=== PATIENT | male | born 2005 | race Caucasian/White ===

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

== ENCOUNTER 2023-02-26 14:16 | Emergency (ER) | payer OTHER, SELFPAY ==
[2023-02-26 14:23] VITALS: BMI 36.2
--- NOTE | 2023-02-26 14:41 | XRR_ITS ---
PROCEDURE INFORMATION: Exam: XR Chest Exam date and time: 02/26/2023 2:51 PM Age: 17 years old Clinical indication: Shortness of breath; Additional info: SOB TECHNIQUE: Imaging protocol: Radiologic exam of the chest. Views: 1 view. COMPARISON: No relevant prior studies available. FINDINGS: Lungs: Unremarkable. No consolidation. Pleural spaces: Unremarkable. No pleural effusion. No pneumothorax. Heart/Mediastinum: Unremarkable. No cardiomegaly. Bones/joints: Unremarkable. XR/XR chest 1V portable [id number] IMPRESSION: No acute findings.
--- NOTE | 2023-02-26 14:51 | PC.NURSE ---
triage overseen by this RN
--- NOTE | 2023-02-26 15:09 | ED.C_ITS ---
HPI - Psych General: Chief Complaint: Psychiatric Symptoms Stated Complaint: SI; drug use Time Seen by Provider: 02/26/23 14:19 History of Present Illness: Patient comes in with request for help detoxing from fentanyl. Patient states he snorts fentanyl every 6 hours and has for a while. States he wants to get off the drugs. Denies suicidal or homicidal ideation. States he last used about 3 hours prior to arrival. Physical exam is unremarkable. He does complain of some occasional shortness of breath but thinks that might be psychological. Review of Systems Const: Denies: fever(s) or body aches Eyes: Denies: change in vision or blurry vision ENMT: Denies: throat pain or odynophagia Card: Denies: chest pain or palpitations Resp: Reports: non-productive cough; Denies: dyspnea or productive cough GI: Denies: abdominal pain, nausea or vomiting : Denies: flank pain or dysuria Musc: Denies: neck pain or back pain Skin/Breast: Denies: rash or pruritus Neuro: Denies: headache(s) or numbness in extremities Psych: Denies: anxiety or change in appetite Endo: Denies: polyuria or excessive sweating PFS ED PFSH: Medical History (Updated 02/26/23 @ 15:09 by Mateusz Ngo MD) ADHD (attention deficit hyperactivity disorder) Allergic rhinitis due to allergen Hypertension Lumbar back sprain Morbid obesity with BMI of 45.0-49.9, adult Family History Other Cancer Diabetes Social History Smoking and tobacco status: never smoked Alcohol intake: never Substance/Drug Use: current Substance/Drug use frequency: few times a week Highest education level completed: 11th Grade Physical Exam Const: COMMON NORMALS: no acute distress, patient oriented x3, healthy appearing and alert HENMT: COMMON NORMALS: normocephalic and atraumatic HEAD & SCALP: normocephalic and atraumatic Eye: COMMON NORMALS: Equal, round and reactive pupils present and EOMs intact bilaterally PUPIL: Yes Equal, round and reactive pupils present Neck/C-Spine: COMMON NORMALS: full ROM and supple Resp: COMMON NORMALS: normal respiratory effort, No retractions and No use of accessory muscles Cardio: COMMON NORMALS: regular rate and regular rhythm RATE: regular rate RHYTHM: regular rhythm GI: COMMON NORMALS: Normal to inspection, nondistended, normoactive bowel sounds present, Soft to palpation and non-tender PALPATION: Yes Soft to palpation Extremity: COMMON NORMALS: normal to inspection and full ROM Neuro: COMMON NORMALS: patient oriented x3 SENSORIUM/ORIENTATION: Yes alert Psych: COMMON NORMALS: mental status grossly normal and cooperative Skin: COMMON NORMALS: no rashes or lesions noted and no wounds GENERAL SKIN EXAM: no rashes or lesions noted MDM - Psych Medical Decision Making Patient comes in with request for help detoxing from fentanyl. Patient states he snorts fentanyl every 6 hours and has for a while. States he wants to get off the drugs. Denies suicidal or homicidal ideation. States he last used about 3 hours prior to arrival. Physical exam is unremarkable. He does complain of some occasional shortness of breath but thinks that might be psychological. Will check x-ray, and reassess. On reassessment I talked to the patient about the x-ray results. His chest x- ray is unremarkable. I talked with him about calling turning [facility] on Tuesday to see if they can get him in for rehab. We will start him on Bentyl, Zofran, and naproxen. He already takes clonidine for chronic high blood pressure. Will discharge at this time with precautions return for worsening or changing symptoms. Discharge Plan Discharge Patient Disposition: Home Clinical Impression: Fentanyl use disorder, mild, abuse Condition: Stable Prescriptions: New naproxen sodium 550 mg tablet 550 mg PO BID Qty: 10 0RF dicyclomine 10 mg capsule 10 mg PO TID PRN (Reason: vomiting) Qty: 14 0RF ondansetron 4 mg tablet,disintegrating 4 mg PO Q6H PRN (Reason: nausea and vomiting) Qty: 20 0RF No Action ibuprofen 200 mg tablet 200 mg PO Q6H PRN diphenhydramine HCl [Benadryl Allergy] 25 mg tablet 25 mg PO TID PRN clonidine HCl 0.2 mg tablet 0.2 mg PO BID 90 Days Qty: 180 0RF Discharge Orders: Discharge ED (Routine); Ordered 02/26/23 Ordered By: Mateusz Ngo Referrals: Urbano Sykes MD [Primary Care Provider] - Patient Instructions: Narcotic Withdrawal (ED) Coding Level of Care Code 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
== END 2023-02-26 15:28 | disposition home or self-care (01) ==
PROVIDERS: Emergency Provider Emergency Medicine; PCP Family Medicine Adult Medicine
DX: F11.10 Opioid abuse, uncomplicated (principal); I10 Essential (primary) hypertension
CPT/HCPCS: 71045; 99283

== ENCOUNTER 2024-12-08 14:36 | Inpatient (IN) | payer SELFPAY ==
[2024-12-08 14:38] VITALS: BP 158/79; PULSE 101; RESP 18; TEMP 36.7; O2SAT 99; BMI 29.9
--- NOTE | 2024-12-08 15:57 | CTR_ITS ---
PROCEDURE INFORMATION: Exam: CT Orbits With Contrast Exam date and time: 12/08/2024 4:06 PM Age: 19 years old Clinical indication: Sinusitis and other: RT eye swellling; Acute; Additional info: R eye preoptosis and swelling TECHNIQUE: Imaging protocol: Computed tomography of the orbits with contrast. Radiation optimization: All CT scans at this facility use at least one of these dose optimization techniques: automated exposure control; mA and/or kV adjustment per patient size (includes targeted exams where dose is matched to clinical indication); or iterative reconstruction. Contrast material: OMNIPAQUE 350; Contrast volume: 80 ml; Contrast route: INTRAVENOUS (IV); COMPARISON: No relevant prior studies available. RADIATION DOSE METRICS: Total DLP (mGy-cm): 365.78 FINDINGS: Paranasal sinuses: Frothy secretions in the right ethmoid air cells and right maxillary sinus. Mucosal disease of the right sphenoid sinus and left maxillary sinus. Orbital cavities: There is right medial and lateral extraconal fat stranding. Teeth: Periapical lucency surrounding the left maxillary 1st premolar tooth. Bones/joints: No acute fracture. Soft tissues: There is a right periorbital swelling. CT/[place] [id number] IMPRESSION: 1. Right orbital cellulitis with no abscess formation. 2. Acute sinusitis of the right maxillary sinus and right ethmoid air cells.
--- NOTE | 2024-12-08 15:58 | ED_ITS ---
HPI - Allergic Reaction 2 General: Chief complaint: Allergic Reaction Stated complaint: allergic reation Time Seen by Provider: 12/08/24 15:50 History of Present Illness: HPI narrative: 19-year-old male presents to the emergen cy room with complaints of swelling of the right eye especially the upper eyelid there is some swelling and protrusion of the eye. He has no vision changes symptoms began overnight. No fever sweats or chills about a week ago he had flulike symptoms a week ago and they resolved. No fever sweats or chills no purulent discharge Associated symptoms: Deny abdominal pain Related Data Home Medications ?Medication ?Instructions ?Recorded ?Confirmed No Known Home Medications 12/08/2406/24 Allergies Allergy/AdvReac Type Severity Reaction Status Date / Time shellfish derived Allergy Severe ALGY-Anaphy Verified 03/01/23 14:37 laxis Review of Systems 2 Const: Denies: fever(s) or chills Eyes: Reports: eye discomfort and other (Periorbital swelling of the right eye); Denies: change in vision, photophobia or eye redness Card: Denies: chest pain Resp: Denies: dyspnea GI: Denies: abdominal pain : Denies: dysuria, urinary frequency or urinary urgency Musc: Denies: neck pain or back pain Skin/Breast: Denies: rash PFSH ED 2 PFSH: Medical History Weight loss, intentional Obesity (BMI 30-39.9) Nausea & vomiting Opioid dependence with current use Lumbar back sprain ADHD (attention deficit hyperactivity disorder) Allergic rhinitis due to allergen Hypertension Has almost corrected with his weight loss of 100 pounds by 03/01/2023 Family History Other Cancer Diabetes Social History Smoking and tobacco/nicotine status: never used tobacco/nicotine Alcohol intake: never Substance/Drug Use: current Substance/Drug use frequency: few times a week Highest education level completed: 11th Grade Physical Exam 2 Const: COMMON NORMALS: no acute distress GENERAL APPEARANCE: cooperative and comfortable ORIENTATION/CONSCIOUSNESS: Yes awake, Yes oriented to person, Yes oriented to place and Yes oriented to time HENMT: COMMON NORMALS: normocephalic, atraumatic and hearing grossly normal bilaterally HEAD & SCALP: normocephalic and atraumatic Eye: OTHER: Right eye periorbital swelling particularly in the upper eyelid. No sclera or conjunctival injection. No purulent drainage or some clear tearing. Minimal tenderness with palpation over the globe of the eye. Resp: COMMON NORMALS: normal respiratory effort, No retractions, No use of accessory muscles and clear to auscultation bilaterally AUSCULTATION: clear to auscultation bilaterally Cardio: COMMON NORMALS: regular rate, regular rhythm and No murmurs present (Cardio) RATE: regular rate RHYTHM: regular rhythm Extremity: COMMON NORMALS: normal to inspection, capillary refill normal, no clubbing, cyanosis or edema, no calf tenderness and no pedal edema Neuro: SENSORIUM/ORIENTATION: Yes oriented to person, Yes oriented to place and Yes oriented to time Skin: COMMON NORMALS: no rashes or lesions noted GENERAL SKIN EXAM: no rashes or lesions noted Course 2 Vital Signs: Vital signs: Vital Signs Temperature 98.0 F 12/08/24 14:38 Pulse Rate 101 H 12/08/24 14:38 Respiratory Rate 18 12/08/24 14:38 Blood Pressure 158/79 12/08/24 14:38 Pulse Oximetry 99 12/08/24 14:38 Oxygen Delivery Me thod Room Air 12/08/24 14:38 MDM - Allergic Reaction Medical Decision Making Labs and imaging reviewed white count 14, CRP is elevated. CT shows an orbital cellulitis likely from right ethmoid sinusitis. Discussed with Dr. Renner on- call for ophthalmology he is going to consult on the patient. Will start Vanco and Zosyn cultures done admit Dr. Smith's hospitalist. Orders written. Interestingly in patient first arrived he had little to no pain at all during exam however by the time we completed the full workup, began to have significantly more discomfort requiring pain medications. Medical Records I reviewed the patient's medical records. Lab Data I reviewed the patient's lab results. 12/08/24 16:05 12/08/24 16:[address] 12/08/24 15:57 IMPRESSION: 1. Right orbital cellulitis with no abscess formation. 2. Acute sinusitis of the right maxillary sinus and right ethmoid air cells. Laboratory Results WBC 14.16 10^3/uL (3.29-11.43) H 12/08/24 16:05 RBC 4.83 10^6/uL (3.85-5.65) 12/08/24 16:05 Hgb 14.50 g/dL (11.27-16.99) 12/08/24 16:05 Hct 43.1 % (37-53) 12/08/24 16:05 MCV 89.2 fl (82-101) 12/08/24 16:05 MCH 30.0 pg (27-33) 12/08/24 16:05 MCHC 33.6 g/dL (30-55) 12/08/24 16:05 RDW 11.9 % (12.1-15.1) L 12/08/24 16:05 Plt Count 440 10^3/cmm (157-399) H 12/08/24 16:05 MPV 10.0 fL (7.4-10.4) 12/08/24 16:05 Neut % (Auto) 77.6 % 12/08/24 16:05 Lymph % (Auto) 12.5 % 12/08/24 16:05 Sibley % (Auto) 8.3 % 12/08/24 16:05 Eos % (Auto) 0.9 % 12/08/24 16:05 Baso % (Auto) 0.2 % 12/08/24 16:05 Neut # (Auto) 10.98 10^3/uL (1.8-7.7) H 12/08/24 16:05 Lymph # (Auto) 1.8 10^3/uL (0.8-4.8) 12/08/24 16:05 Sibley # (Auto) 1.2 10^3/uL (0.2-0.9) H 12/08/24 16:05 Eos # (Auto) 0.1 10^3/uL (0.0-0.8) 12/08/24 16:05 Baso # (Auto) 0.0 10^3/uL (0.0-0.1) 12/08/24 16:05 Nucleated RBC % (auto) 0 % 12/08/24 16:05 Nucleated RBCs # 0.0 /100WBC 12/08/24 16:05 Sodium 139 mmol/L (136-145) 12/08/24 16:05 Potassium 3.3 mmol/L (3.5-5.1) L 12/08/24 16:05 Chloride 96 mmol/L (98-107) L 12/08/24 16:05 Carbon Dioxide 29 mmol/L (22-29) 12/08/24 16:05 Anion Gap 17.3 (5-19) 12/08/24 16:05 BUN 10 mg/dL (6-20) 12/08/24 16:05 Creatinine 0.6 mg/dL (0.7-1.2) L 12/08/24 16:05 GFR Calculation 170.1 mL/min (90-130) H 12/08/24 16:05 Glucose 108 mg/dL (65-115) 12/08/24 16:05 Calculated Osmolality 288 mOsm/kg (285-295) 12/08/24 16:05 Calcium 9.4 mg/dL (8.5-10.5) 12/08/24 16:05 Total Bilirubin 0.5 mg/dL (0.15-1.2) 12/08/24 16:05 AST 15 U/L (0-40) 12/08/24 16:05 ALT 20 U/L (0-41) 12/08/24 16:05 Alkaline Phosphatase 78 U/L (40-130) 12/08/24 16:05 C-Reactive Protein 41.6 mg/L (0.0-4.9) H 12/08/24 16:05 Total Protein 8.4 g/dL (6.6-8.7) 12/08/24 16:05 Albumin 4.3 g/dL (3.5-5.2) 12/08/24 16:05 Globulin 4.1 g/dL (1.3-4.6) 12/08/24 16:05 All radiology interpretation(s) finalized by discharge Discharge Plan Discharge Patient Disposition: Admitted As Inpatient Admit Provider: Junior Garcia Clinical Impression: Cellulitis of right orbit Condition: Stable Prescriptions: No Action No Known Home Medications Referrals: Urbano Sykes MD [Primary Care Provider] - Print Language: Greenlandic Coding Level of Care Code ED Glue Spreader for [facility] Justino
[2024-12-08 16:16] LABS: Basophils % 0.2 %; Eosinophils # 0.1 10^3/uL (0.0-0.8); Eosinophils % 0.9 %; Hematocrit 43.1 % (37-53); Lymphocytes # 1.8 10^3/uL (0.8-4.8); Lymphocytes % 12.5 %; Mean Corpuscular HGB Conc 33.6 g/dL (30-55); Mean Corpuscular Volume 89.2 fl (82-101); Monocytes # 1.2 10^3/uL (0.2-0.9); Monocytes % 8.3 %; Neutrophils # 10.98 10^3/uL (1.8-7.7); Neutrophils % 77.6 %; Nucleated Red Blood Cells % 0 %; Platelet Count 440 10^3/cmm (157-399); Red Blood Count 4.83 10^6/uL (3.85-5.65); Red Cell Distribution Width 11.9 % (12.1-15.1); White Blood Count 14.16 10^3/uL (3.29-11.43)
[2024-12-08] MEDS: iohexol 350 mg/mL 500 mL Btl (per mL) IV (16:18)
[2024-12-08 16:32] LABS: Alanine Aminotransferase 20 U/L (0-41); Albumin Level 4.3 g/dL (3.5-5.2); Alkaline Phosphatase 78 U/L (40-130); Aspartate Amino Transferase 15 U/L (0-40); Blood Urea Nitrogen 10 mg/dL (6-20); C Reactive Protein 41.6 mg/L (0.0-4.9); Calcium 9.4 mg/dL (8.5-10.5); Carbon Dioxide 29 mmol/L (22-29); Chloride 96 mmol/L (98-107); Globulin 4.1 g/dL (1.3-4.6); Glomerular Filtration Rate 170.1 mL/min (90-130); Glucose 108 mg/dL (65-115); Osmolality Calculated 288 mOsm/kg (285-295); Sodium 139 mmol/L (136-145); Total Bilirubin 0.5 mg/dL (0.15-1.2); Total Protein 8.4 g/dL (6.6-8.7)
[2024-12-08 16:35] LABS: Anion Gap 17.3 (5-19); Potassium 3.3 mmol/L (3.5-5.1)
[2024-12-08] MEDS: piperacillin-tazobactam 3.375 GM in sodium chloride 0.9% (plus) 50 ML IV (17:56)
[2024-12-08 18:00] VITALS: BP 159/78; PULSE 74; O2SAT 94; O2SAT 95
[2024-12-08] MEDS: ondansetron 2 mg/ML SDV 2 mL 4 MG IVP (18:02)
[2024-12-08 18:03] VITALS: RESP 14; O2SAT 97
[2024-12-08] MEDS: morphine 4 mg/mL SDV 1 mL IVP (18:03)
--- NOTE | 2024-12-08 18:06 | P.HP_ITS ---
Providers/Chief Complaint 2 Admitting Physician: Junior Garcia MD Primary Care Provider: Urbano Sykes MD Chief Complaint: allergic reation History of Present Illness Dave Howard is a 19 year old male with a past medical history of obesity recently lost weight, trying to lose weight, hypertension, who presents [facility] due to swelling around right eye specifically right upper eyelid swelling right brow swelling, and right lower eyelid swelling. He tells me that he can see out of the right eye no blurry vision, no floaters, no photopsia, but does have frequent tearing out of right eye. He tells me that symptoms started about 24 hours ago, with itchiness in his right eye no visual changes, no fevers, no chills, no night sweats, no trauma to the eye, no foreign body in the eye, no animal bite or licking, he did have a flulike symptoms about a week ago Review of Systems 2 Const: Denies: fever(s), chills, fatigue or malaise Card: Denies: chest pain Resp: Denies: dyspnea GI: Denies: abdominal pain Medications/Allergies Home Medications ?Medication ?Instructions ?Recorded ?Confirmed ?Last Taken ?Type No Known Home Medications 12/08/2406/24 Unknown History Allergies Allergy/AdvReac Type Severity Reaction Status Date / Time shellfish derived Allergy Severe ALGY-Anaphy Verified 03/01/23 14:37 laxis PFSH Acute 2 PFSH: Medical History Weight loss, intentional Obesity (BMI 30-39.9) Nausea & vomiting Opioid dependence with current use Lumbar back sprain ADHD (attention deficit hyperactivity disorder) Allergic rhinitis due to allergen Hypertension Has almost corrected with his weight loss of 100 pounds by 03/01/2023 Family History Other Cancer Diabetes Social History Smoking and tobacco/nicotine status: never used tobacco/nicotine Alcohol intake: never Substance/Drug Use: current Substance/Drug use frequency: few times a week Highest education level completed: 11th Grade Vitals/I&O/Wt Last Vital Signs Temp 98.0 F 12/08/24 14:38 Pulse 101 H 12/08/24 14:38 Resp 14 12/08/24 18:03 BP 158/79 12/08/24 14:38 Pulse Ox 97 12/08/24 18:03 O2 Del Method Room Air 12/08/24 14:38 Weight last 48 hrs Weight 97.522 kg Physical Exam 2 Const: COMMON NORMALS: no acute distress and patient oriented x3 HENMT: COMMON NORMALS: normocephalic HEAD & SCALP: normocephalic Eye: OTHER: Right pupil equal round reactive to light, no conjunctival abnormalities, no pupillary abnormalities, Right brow, right upper eyelid right lower eyelid are swollen slight erythema, no purulent drainage has more clear drainage no maxillary tenderness, no ethmoid tenderness, extraocular movements intact, no eye pain, no pain with range of motion,, no proptosis, no ophthalmoplegia no visual impairment, no fevers Neck/C-Spine: COMMON NORMALS: no JVD Resp: COMMON NORMALS: normal respiratory effort, No retractions, No use of accessory muscles and clear to auscultation bilaterally AUSCULTATION: clear to auscultation bilaterally Cardio: COMMON NORMALS: regular rate, regular rhythm, S1 normal heart sound present and S2 normal heart sound present RATE: regular rate RHYTHM: r egular rhythm HEART SOUNDS: S1 normal heart sound present and S2 normal heart sound present GI: COMMON NORMALS: Normal to inspection, nondistended, normoactive bowel sounds present, Soft to palpation and non-tender Extremity: COMMON NORMALS: no calf tenderness and no pedal edema Neuro: COMMON NORMALS: patient oriented x3, CN's II-XII intact bilaterally and moves all extremities Psych: COMMON NORMALS: mental status grossly normal Data 12/08/24 16:05 12/08/24 16:05 A&P Assessment and plan (1) Cellulitis of right orbit: Plan Right orbital cellulitis CT imaging with contrast CT/[place] con [id number] IMPRESSION: 1. Right orbital cellulitis with no abscess formation. 2. Acute sinusitis of the right maxillary sinus and right ethmoid air cells. Plan # IV vancomycin # Corina Renner on consult # Continue to clinically monitor closely # Monitor patient closely # Full code Lovenox for DVT prophylaxis PDMP PDMP Reviewed: Not Reviewed Attestations 2 Medical Necessity Statement*: Patient requires hospitalization inpatient, greater than 2 midnights for orbital cellulitis Diagnoses Cellulitis of right orbit H05.011
[2024-12-08 18:38] LABS: Erythrocyte Sedimentation Rate 14 mm/hr (0-10)
[2024-12-08 19:07] LABS: Procalcitonin 0.02 ng/mL (0-0.5); Thyroid Stimulating Hormone 0.27 uIU/mL (0.27-4.20)
[2024-12-08 19:18] LABS: Chol HDL Ratio 2.89 mg/dL (1.0-5.00); Cholesterol 104 mg/dL (0-200); HDL Cholesterol 36 mg/dL (60-100); LDL Cholesterol Calculated 51 mg/dL (50-129); LDL HDL Ratio 1.42 RATIO (0.00-3.22); Triglycerides 85 mg/dL (0-150)
[2024-12-08 19:38] LABS: Lactic Sepsis W/Reflex 1.7 mmol/L (0.5-2.2)
[2024-12-08] MEDS: pantoprazole 40 mg SDV IVP (19:56)
[2024-12-08] MEDS: vancomycin 1,500 MG/300 ML PIGGYBACK 200 MG IV (19:56)
[2024-12-08] MEDS: HYDROMORPHONE HCL 0.5 MG/0.5 ML INJ 1 MG IV (19:57)
[2024-12-08] MEDS: enoxaparin 40 mg/0.4 mL Syringe SUBCUT (20:02)
[2024-12-08 21:32] LABS: Estmated Average Glucose 114; Hemoglobin A1C 5.6 % (4.0-6.0)
[2024-12-08] MEDS: nicotine 21 mg Patch 1 PATCH TRANSDERMA (21:40)
[2024-12-09] MEDS: acetaminophen 325 mg Tablet 650 MG PO ×2 (01:25→08:32)
[2024-12-09 03:56] LABS: Basophils % 0.1 %; Eosinophils # 0.1 10^3/uL (0.0-0.8); Eosinophils % 0.3 %; Hematocrit 39.8 % (37-53); Lymphocytes % 13.8 %; Mean Corpuscular HGB Conc 33.2 g/dL (30-55); Mean Corpuscular Hemoglobin 30.5 pg (27-33); Mean Corpuscular Volume 91.9 fl (82-101); Mean Platelet Volume 9.8 fL (7.4-10.4); Monocytes # 1.4 10^3/uL (0.2-0.9); Monocytes % 9.9 %; Neutrophils # 10.85 10^3/uL (1.8-7.7); Neutrophils % 75.6 %; Nucleated Red Blood Cells % 0 %; Platelet Count 426 10^3/cmm (157-399); Red Blood Count 4.33 10^6/uL (3.85-5.65); White Blood Count 14.37 10^3/uL (3.29-11.43)
[2024-12-09] MEDS: morphine 4 mg/mL SDV 1 mL 2 MG IVP (04:16)
[2024-12-09 04:18] LABS: Alanine Aminotransferase 16 U/L (0-41); Albumin Level 3.8 g/dL (3.5-5.2); Alkaline Phosphatase 69 U/L (40-130); Anion Gap 14.8 (5-19); Aspartate Amino Transferase 11 U/L (0-40); Blood Urea Nitrogen 8 mg/dL (6-20); Calcium 9.1 mg/dL (8.5-10.5); Carbon Dioxide 31 mmol/L (22-29); Chloride 101 mmol/L (98-107); Creatinine Clr Calc Pharmacy 198.7791; Globulin 3.8 g/dL (1.3-4.6); Glomerular Filtration Rate 142.4 mL/min (90-130); Glucose 106 mg/dL (65-115); Magnesium 2.2 mg/dL (1.7-2.3); Osmolality Calculated 295 mOsm/kg (285-295); Phosphorus 3.1 mg/dL (2.5-4.5); Potassium 3.8 mmol/L (3.5-5.1); Sodium 143 mmol/L (136-145); Total Bilirubin 0.7 mg/dL (0.15-1.2); Total Protein 7.6 g/dL (6.6-8.7)
[2024-12-09] MEDS: piperacillin-tazobactam 4.5 GM in sodium chloride 0.9% (plus) 50 ML IV ×3 (04:23→20:48)
[2024-12-09] MEDS: vancomycin 1,500 MG/300 ML PIGGYBACK 200 MG IV ×3 (06:49→22:58)
[2024-12-09 08:00] VITALS: BP 156/93; PULSE 66; RESP 15; TEMP 36.4; O2SAT 97
[2024-12-09] MEDS: nicotine 21 mg Patch 1 PATCH TRANSDERMA (08:33)
--- NOTE | 2024-12-09 08:54 | PHA.VACGOAL ---
Vancomycin Goal - Goal Vancomycin Goal:: 10-15 mg/L Vancomycin Indication:: SSTI - Therapy Current therapy:: Pip/Tazo Day of therpy:: Day [1]of [] . Actual body weight (kg): 97.522 kg - Data Labs: WBC 14.37 10^3/uL (3.29-11.43) H 12/09/24 03:40 RBC 4.33 10^6/uL (3.85-5.65) 12/09/24 03:40 Hgb 13.20 g/dL (11.27-16.99) 12/09/24 03:40 Hct 39.8 % (37-53) 12/09/24 03:40 MCV 91.9 fl (82-101) 12/09/24 03:40 MCH 30.5 pg (27-33) 12/09/24 03:40 MCHC 33.2 g/dL (30-55) 12/09/24 03:40 RDW 12.0 % (12.1-15.1) L 12/09/24 03:40 Sodium 143 mmol/L (136-145) 12/09/24 03:40 Potassium 3.8 mmol/L (3.5-5.1) 12/09/24 03:40 Chloride 101 mmol/L (98-107) 12/09/24 03:40 Carbon Dioxide 31 mmol/L (22-29) H 12/09/24 03:40 Anion Gap 14.8 (5-19) 12/09/24 03:40 BUN 8 mg/dL (6-20) 12/09/24 03:40 Creatinine 0.7 mg/dL (0.7-1.2) 12/09/24 03:40 GFR Calculation 142.4 mL/min (90-130) H 12/09/24 03:40 Treatment plan:: new consult Regimen:: New start vancomycin for cellulitis of the right orbit. No history of vancomycin found. Telepharmacy dosing 1500 mg q8h.
[2024-12-09] MEDS: HYDROcodone-acetaminophen 5-325 mg Tablet 1 TAB PO ×3 (09:31→19:30)
--- NOTE | 2024-12-09 10:06 | P.PN_ITS ---
Subjective 2 Subjective: - Patient was seen this morning, denies any fevers, no chills, no cough -Does report increased tearing around th e eye but no serosanguineous discharge -No diplopia, no blurry vision, does rep ort some pressure in his eye -No fevers, no chills, pupils equal roun d reactive to light, extraocular movements intact no pain with eye motion no abdominal plegia no visual impairment -Continue IV antibiotics -Spoke to Dr. Jayden Renner, he will com e and see patient this morning, discussed trying a dose of steroids Vitals/I&O/Wt Last Vital Signs Temp 97.6 F 12/09/24 08:00 Pulse 66 12/09/24 08:00 Resp 15 12/09/24 08:00 BP 156/93 12/09/24 08:00 Pulse Ox 97 12/09/24 08:00 O2 Del Method Room Air 12/09/24 08:00 12/08/24 12/09/24 12/09/24 22:59 06:59 14:59 Intake Total 550 / 550 410 / 410 Balance 550 / 550 410 / 410 Weight last 48 hrs Weight 97.522 kg Weight 97.522 kg Physical Exam 2 Const: COMMON NORMALS: no acute distress and patient oriented x3 Eye: OTHER: Right eye, swelling upper and lower eyelid similar compared to yesterday, erythema has improved, pupil equal round reactive to light, extraocular movements intact, no blurry vision, no visual deficits, no photopsia no floaters, no blurry vision Resp: COMMON NORMALS: normal respiratory effort, No retractions, No use of accessory muscles and clear to auscultation bilaterally AUSCULTATION: clear to auscultation bilaterally Cardio: COMMON NORMALS: regular rate, regular rhythm, S1 normal heart sound present and S2 normal heart sound present RATE: regular rate RHYTHM: r egular rhythm HEART SOUNDS: S1 normal heart sound present and S2 normal heart sound present GI: COMMON NORMALS: Normal to inspection, nondistended, normoactive bowel sounds present and non-tender Extremity: COMMON NORMALS: no pedal edema Neuro: COMMON NORMALS: patient oriented x3 Psych: COMMON NORMALS: mental status grossly normal Data 12/09/24 03:40 12/09/24 03:40 A&P Assessment and plan (1) Cellulitis of right orbit: Plan Right orbital cellulitis CT imaging with contrast CT/CT [place] w con [id number] IMPRESSION: 1. Right orbital cellulitis with no abscess formation. 2. Acute sinusitis of the right maxillary sinus and right ethmoid air cells. Plan # IV vancomycin # Zosyn -1 dose IV steroids this morning will consider further doses based on clinical progress -Dr. Renner on consult # Continue to clinically monitor closely # Monitor patient closely # Full code Lovenox for DVT prophylaxis Plan for today 1 dose IV steroids continue IV antibiotics, Dr. Renner will see patient today PDMP PDMP Reviewed: Not Reviewed Attestations 2 Medical Necessity Statement*: Patient requires hospitalization for right orbital cellulitis Diagnoses Cellulitis of right orbit H05.011
--- NOTE | 2024-12-09 11:47 | PM.CONSULT ---
Providers/Reason For Consult Consulting Physician/Specialty*: Jayden Renner MD / ophthalmology Reason for Consult*: orbital cellulitis Requesting Physician: Junior Garcia and Sim Menjivar Attending Physician: Junior Garcia MD Primary Care Provider: Urbano Sykes MD History of Present Illness History of Present Illness Dave Howard is a 19 year old male who presents with three days priorbital swelling and pain with EOMs, currently diagnosed with imaging confirmed orbital cellulitis. Review of Systems Eyes: Reports: change in vision, photophobia, eye discomfort and eye discharge Medications/Allergies Home Medications ?Medication ?Instructions ?Recorded ?Confirmed ?Last Taken ?Type No Known Home Medications 12/08/24 12/08/24 Unknown History Allergies Allergy/AdvReac Type Severity Reaction Status Date / Time shellfish derived Allergy Severe ALGY-Anaphy Verified 03/01/23 14:37 laxis Current Medications Generic Name Dose Route Start Last Admin Trade Name Freq PRN Reason Stop Dose Admin Acetaminophen 650 mg 12/08/24 17:57 12/09/24 08:32 Acetaminophen 325 Mg Tablet PO 650 mg Q6H PRN Administration Mild/Mod Pain Or Temp >/= 101 Hydrocodone Bitart/Acetaminophen 1 tab 12/09/24 08:48 12/09/24 09:31 Hydrocodone-Acetaminophen 5-325 Mg Tablet PO 1 tab Q4H PRN Administration MODERATE PAIN Enoxaparin Sodium 40 mg 12/08/24 18:15 12/08/24 20:02 Enoxaparin 40 Mg/0.4 Ml Syringe SUBCUT 40 mg Q24H BRITNEY Administration Piperacillin Sod/Tazobactam 50 mls @ 12.5 mls/hr 12/09/24 02:00 12/09/24 08:36 Sod 4.5 gm/ Sodium Chloride IV Infused Q8H BRITNEY Infusion Vancomycin HCl 1,500 mg in 300 mls @ 200 mls/hr 12/09/24 06:30 12/09/24 08:36 Vancocin IV Infused Q8H BRITNEY Infusion Nicotine 1 patch 12/08/24 20:22 12/09/24 08:33 Nicotine 21 Mg Patch TRANSDERMA 1 patch DAILY BRITNEY Administration Pantoprazole Sodium 40 mg 12/08/24 18:00 12/08/24 19:56 Pantoprazole 40 Mg Sdv IVP 40 mg Q24H BRITNEY Administration PFSH Acute PFSH: Medical History Weight loss, intentional Obesity (BMI 30-39.9) Nausea & vomiting Opioid dependence with current use Lumbar back sprain ADHD (attention deficit hyperactivity disorder) Allergic rhinitis due to allergen Hypertension Has almost corrected with his weight loss of 100 pounds by 03/01/2023 Family History Other Cancer Diabetes Social History Smoking and tobacco/nicotine status: never used tobacco/nicotine Alcohol intake: never Substance/Drug Use: current Substance/Drug use frequency: few times a week Highest education level completed: 11th Grade Vitals/I&O/Wt Last Vital Signs Temp 97.6 F 12/09/24 08:00 Pulse 66 12/09/24 08:00 Resp 15 12/09/24 08:00 BP 156/93 12/09/24 08:00 Pulse Ox 97 12/09/24 08:00 O2 Del Method Room Air 12/09/24 08:00 12/08/24 12/09/24 12/09/24 22:59 06:59 14:59 Intake Total 550 / 550 410 / 410 Balance 550 / 550 410 / 410 Weight last 48 hrs Weight 215 lb Weight 215 lb Physical Exam Eye: OTHER: VA sc: 20/25 OD, 20/20 OS IOP: 24mmHg OD, 13mmHg OS Red desaturation: 5-10% less OD than OS Pupils: ERRL and no rAPD EOMs: pain restricted in superior gaze -2mm, forced ductions not performed; normal otherise Confrontational hartley: full OU Exam abnormalities: 3-4+ periorbital edema and mild erythema OD, 1+ conjunctival injection OD All other exam findings are normal, including 0.2 C:D ratio and no sign of papillitis or pallor Data 12/09/24 03:40 12/09/24 03:40 A&P Assessment and plan (1) Cellulitis of right orbit: # Orbital cellulitis, right eye No abscess on imaging. Reassuring exam with the only notable abnormality being subjective red desaturation of the right eye. Nerve appears healthy, no rAPD, and orbital/ocular pressure okay to monitor on abx for now. Add systemic steroids (1mg/kg prednisone, or equivalent). Will recommend adding metronidazole if not noticeably improved tomorrow. As long as patient is stable vs improved, ophthalmology will follow-up outpatient. Patient does not have insurance and lives in [facility]. Discussed improtance of obtaining insurance for his general health, but will see patient without charge at clinic to give every chance for appropriate follow-up. PDMP PDMP Reviewed: Not Reviewed Consult Attestations Time Spent in Patient Care: 30 minutes Coding Level of Care Code Acute Code for Chg Fwd Diagnoses Cellulitis of right orbit H05.011 Time Spent (min) 30
[2024-12-09 12:00] VITALS: BP 138/77; PULSE 92; RESP 15; TEMP 37; O2SAT 98
[2024-12-09] MEDS: methylPREDNISolone sod succ 125 mg/2 mL INJ IVP (12:51)
[2024-12-09] MEDS: lanolin oint 7 gm 1 APPLIC TOPICAL (14:55)
[2024-12-09] MEDS: pantoprazole 40 mg SDV IVP (17:34)
[2024-12-09 19:32] VITALS: BP 146/82; PULSE 99; RESP 18; TEMP 36.9; O2SAT 98
[2024-12-09] MEDS: ondansetron 2 mg/ML SDV 2 mL 4 MG IVP (20:48)
[2024-12-09 23:13] VITALS: BP 129/69; PULSE 93; RESP 18; TEMP 36.9; O2SAT 98
[2024-12-10] MEDS: HYDROcodone-acetaminophen 5-325 mg Tablet 1 TAB PO ×3 (01:14→17:29)
[2024-12-10 04:00] VITALS: BP 130/66; PULSE 88; RESP 18; TEMP 37.1; O2SAT 94
[2024-12-10] MEDS: piperacillin-tazobactam 4.5 GM in sodium chloride 0.9% (plus) 50 ML IV (04:45)
[2024-12-10 05:37] LABS: Basophils % 0.1 %; Hematocrit 39.7 % (37-53); Lymphocytes # 1.3 10^3/uL (0.8-4.8); Mean Corpuscular HGB Conc 33.2 g/dL (30-55); Mean Corpuscular Hemoglobin 30.2 pg (27-33); Mean Corpuscular Volume 90.8 fl (82-101); Mean Platelet Volume 9.7 fL (7.4-10.4); Monocytes # 1.5 10^3/uL (0.2-0.9); Monocytes % 11.7 %; Neutrophils # 10.22 10^3/uL (1.8-7.7); Neutrophils % 77.6 %; Nucleated Red Blood Cells % 0 %; Platelet Count 512 10^3/cmm (157-399); Red Blood Count 4.37 10^6/uL (3.85-5.65); Red Cell Distribution Width 12.1 % (12.1-15.1); White Blood Count 13.17 10^3/uL (3.29-11.43)
[2024-12-10 05:54] LABS: Vancomycin Trough 14.6 ug/mL (10-15)
[2024-12-10 06:00] LABS: Alanine Aminotransferase 27 U/L (0-41); Albumin Level 4.1 g/dL (3.5-5.2); Alkaline Phosphatase 67 U/L (40-130); Anion Gap 15.4 (5-19); Aspartate Amino Transferase 21 U/L (0-40); Blood Urea Nitrogen 15 mg/dL (6-20); Calcium 9.7 mg/dL (8.5-10.5); Carbon Dioxide 27 mmol/L (22-29); Chloride 108 mmol/L (98-107); Creatinine Clr Calc Pharmacy 161.6375; Globulin 3.1 g/dL (1.3-4.6); Glucose 119 mg/dL (65-115); Magnesium 2.3 mg/dL (1.7-2.3); Osmolality Calculated 304 mOsm/kg (285-295); Phosphorus 3.1 mg/dL (2.5-4.5); Potassium 4.4 mmol/L (3.5-5.1); Sodium 146 mmol/L (136-145); Total Bilirubin 0.4 mg/dL (0.15-1.2); Total Protein 7.2 g/dL (6.6-8.7)
[2024-12-10] MEDS: vancomycin 1,500 MG/300 ML PIGGYBACK 200 MG IV (06:57)
[2024-12-10 07:37] VITALS: BP 127/70; PULSE 65; RESP 15; TEMP 37; O2SAT 96
[2024-12-10] MEDS: nicotine 21 mg Patch 1 PATCH TRANSDERMA (08:51)
--- NOTE | 2024-12-10 10:07 | PC.CHAP ---
Pastoral Care Encounter/Spiritual Assessment Type of Contact [] Declined java software engineer visit [] Patient/Family/Request visit [] Outpatient visit [] Follow-up visit [] Physician referral [] Code/Alert [x] Routine visit [] Staff referral [] Actively dying [] Patient sleeping [] Family support [] [] Out of room [] Palliative care [] [] Receiving care in room [] Pre-surgical visit [] Trauma [] Long length of stay [] ICU visit [] Other: Relational/Emotional Strength [] Patient feels connected with others/family/visitors/staff [] Distress [] Loneliness/isolation [] Abandonment Spirituality of Patient [] Person of Diane [] Attends Druze of their Diane [x] Believes in Prayer [] Reads Bible or Scientologist materials [] There are Spiritual issues to be addressed Economic Development Director Interventions [x] Prayer [x] Active listening [] Non-anxious presence [] Spiritual/emotional support [] Crisis/trauma care [] Spiritual counseling [] Bereavement support [] Provided bereavement packet [x] Provided Bible/devotional materials [] Provided toy/stuffed animal, coloring book to patient or family member [] Provided Communion [] Anointing/[place] [] Salvation [x] Completed spiritual assessment [] Other: Impact on Illness or Injury [] Angry [] Fearful [] Anxious [] Often cries [] Exhaustion [] Unable to work [] Unable to attend rastafarian [] Unable to walk/stand [] Unable to read [] Unable to drive [] Unable to eat/drink [] Unable to sleep [] Unable to be with family [] Patient intubated [] Other: Summary Time spent with patient 15 min
[2024-12-10] MEDS: acetaminophen 325 mg Tablet 650 MG PO ×2 (12:05→22:57)
[2024-12-10 12:06] VITALS: BP 120/72; PULSE 74; RESP 15; TEMP 36.8; O2SAT 97
[2024-12-10 15:15] VITALS: BP 128/76; PULSE 82; RESP 16; TEMP 36.8; O2SAT 98
[2024-12-10] MEDS: amoxicillin-clav 875-125 mg Tablet 1 TAB PO (17:27)
[2024-12-10] MEDS: enoxaparin 40 mg/0.4 mL Syringe SUBCUT (17:27)
[2024-12-10] MEDS: doxycycline 100 mg Tablet PO (17:27)
[2024-12-10 19:49] VITALS: BP 133/64; PULSE 69; RESP 16; TEMP 36.8; O2SAT 95
--- NOTE | 2024-12-10 20:17 | PM.PN ---
Subjective Subjective: 19-year-old with a past medical history of obesity and hypertension presents with right eye swelling for the past couple days. They noted some pressure behind the right eye for a couple days prior to waking up with the eyelid swollen like a golf ball. Swelling was localized to the right eyelid and eyebrow without involvement of the face or cheeks. They denied any vision changes, fevers, or eye drainage. They have a history of a left eye infection around age 7-8 after rubbing toilet paper in the eye, but no recent eye trauma. On initial presentation on 12/08/2024, labs were notable for leukocytosis to 14.1, hypokalemia to 3.3, and CT scan showed right orbital cellulitis without abscess and right maxillary and ethmoid sinusitis. They were started on IV zosyn and vancomycin. On 12/09/2024, they reported improvement in eye pain and pressure. Exam by ophthalmology noted no vision changes, color changes, or concerns for worsening infection. Labs notable for potassium 3.8 and leukocytosis to 14. They received one dose of IV steroids. On exam today, they endorse zero eye pain or pressure. Eyelid remains swollen but they are able to open the eye. No redness or drainage noted. Labs notable for leukocytosis down to 13.7, potassium 4.4, sodium 146. No cultures have been obtained. Vitals/I&O/Wt Last Vital Signs Temp 98.2 F 12/10/24 19:49 Pulse 69 12/10/24 19:49 Resp 16 12/10/24 19:49 BP 133/64 12/10/24 19:49 Pulse Ox 95 12/10/24 19:49 O2 Del Method Room Air 12/10/24 15:15 12/10/24 12/10/24 12/10/24 06:59 14:59 22:59 Intake Total 2160 / 3040 660 / 660 118 / 778 Balance 2160 / 2920 660 / 660 118 / 778 Weight last 48 hrs Weight 82.645 kg Weight 97.522 kg Physical Exam Const: COMMON NORMALS: no acute distress and patient oriented x3 Eye: OTHER: Right eye, swelling upper and lower eyelid similar compared to yesterday, erythema has improved, pupil equal round reactive to light, extraocular movements intact, no blurry vision, no visual deficits, no photopsia no floaters, no blurry vision Resp: COMMON NORMALS: normal respiratory effort, No retractions, No use of accessory muscles and clear to auscultation bilaterally AUSCULTATION: clear to auscultation bilaterally Cardio: COMMON NORMALS: regular rate, regular rhythm, S1 normal heart sound present and S2 normal heart sound present RATE: regular rate RHYTHM: regular rhythm HEART SOUNDS: S1 normal heart sound present and S2 normal heart sound present GI: COMMON NORMALS: Normal to inspection, nondistended, normoactive bowel sounds present and non-tender Extremity: COMMON NORMALS: no pedal edema Neuro: COMMON NORMALS: patient oriented x3 Psych: COMMON NORMALS: mental status grossly normal Data 12/10/24 05:20 12/10/24 05:20 A&P Assessment and plan (1) Cellulitis of right orbit: Orbital Cellulitis - 19-year-old presenting with right orbital cellulitis secondary to acute sinusitis, improving on IV antibiotics. No signs of abscess or vision changes. Differential Diagnosis: 1. Orbital cellulitis secondary to acute sinusitis, responding to IV antibiotics. 2. Less likely to be orbital abscess given improvement and no focal findings on CT. Plan: 1. Continue to monitor eye swelling, pain, vision changes, and signs of worsening infection. 2. Discontinue IV zosyn and vancomycin. Changed to PO augmentin + doxycycline 3. Discussed with optho today - recommended PO prednisone 4. Ensure close outpatient follow-up with ophthalmology and primary care. 5.Monitor overnight Acute Sinusitis - CT scan notable for right maxillary and ethmoid sinusitis, likely source of orbital cellulitis. Plan: 1. Continue antibiotics as above. PDMP PDMP Reviewed: Not Reviewed Attestations Medical Necessity Statement*: Patient requires hospitalization for right orbital cellulitis Coding Level of Care Code Acute Code for [facility] Fwd Diagnoses Cellulitis of right orbit H05.011
[2024-12-11] VITALS: BP 123/63; PULSE 66; RESP 15; TEMP 36.8; O2SAT 98
[2024-12-11 04:00] VITALS: BP 128/64; PULSE 68; RESP 17; TEMP 37; O2SAT 95
[2024-12-11 06:13] LABS: Basophils % 0.3 %; Eosinophils % 0.4 %; Hematocrit 42.5 % (37-53); Lymphocytes # 3.8 10^3/uL (0.8-4.8); Mean Corpuscular HGB Conc 32.2 g/dL (30-55); Mean Corpuscular Hemoglobin 29.9 pg (27-33); Mean Corpuscular Volume 92.8 fl (82-101); Mean Platelet Volume 9.6 fL (7.4-10.4); Monocytes # 0.9 10^3/uL (0.2-0.9); Monocytes % 8.7 %; Neutrophils # 5.25 10^3/uL (1.8-7.7); Neutrophils % 52.3 %; Nucleated Red Blood Cells % 0 %; Platelet Count 506 10^3/cmm (157-399); Red Blood Count 4.58 10^6/uL (3.85-5.65); Red Cell Distribution Width 12.5 % (12.1-15.1); White Blood Count 10.04 10^3/uL (3.29-11.43)
[2024-12-11 06:34] LABS: Magnesium 2.2 mg/dL (1.7-2.3); Phosphorus 3.9 mg/dL (2.5-4.5)
[2024-12-11 06:36] LABS: Alanine Aminotransferase 44 U/L (0-41); Alkaline Phosphatase 66 U/L (40-130); Anion Gap 16.6 (5-19); Aspartate Amino Transferase 33 U/L (0-40); Blood Urea Nitrogen 18 mg/dL (6-20); Calcium 9.7 mg/dL (8.5-10.5); Carbon Dioxide 29 mmol/L (22-29); Chloride 106 mmol/L (98-107); Creatinine Clr Calc Pharmacy 184.6427; Globulin 3.4 g/dL (1.3-4.6); Glomerular Filtration Rate 142.4 mL/min (90-130); Glucose 91 mg/dL (65-115); Osmolality Calculated 305 mOsm/kg (285-295); Potassium 4.6 mmol/L (3.5-5.1); Sodium 147 mmol/L (136-145); Total Bilirubin 0.5 mg/dL (0.15-1.2); Total Protein 7.4 g/dL (6.6-8.7)
[2024-12-11] MEDS: HYDROcodone-acetaminophen 5-325 mg Tablet 1 TAB PO (06:42)
[2024-12-11 08:00] VITALS: BP 135/80; PULSE 73; RESP 18; TEMP 36.3; O2SAT 94
[2024-12-11] MEDS: predniSONE 20 mg Tablet 40 MG PO (09:18)
[2024-12-11] MEDS: amoxicillin-clav 875-125 mg Tablet 1 TAB PO (09:18)
[2024-12-11] MEDS: doxycycline 100 mg Tablet PO (09:18)
[2024-12-11 09:45] VITALS: BP 135/80; PULSE 73; RESP 16; TEMP 36.3; O2SAT 94
--- NOTE | 2024-12-19 19:48 | PM.DCS ---
Discharge Providers Date of Admission: 12/08/24 17:46 Date of Discharge: December 11, 2024 Attending Provider at Admission: Junior Garcia MD Attending Provider at Discharge: Apryl Malik Consults: Opthomology Primary Care Provider: Urbano Sykes MD Diagnoses at Discharge Discharge Diagnosis (1) Cellulitis of right orbit: Status: Acute Reason for Visit Reason for Visit: allergic reation Hospital Course Hospital Course 19-year-old with a past medical history of obesity and hypertension presents with right eye swelling for the past couple days. They noted some pressure behind the right eye for a couple days prior to waking up with the eyelid swollen like a golf ball. Swelling was localized to the right eyelid and eyebrow without involvement of the face or cheeks. They denied any vision changes, fevers, or eye drainage. He has a history of a left eye infection around age 7-8 after rubbing toilet paper in the eye, but no recent eye trauma. On initial presentation on 12/08/2024, labs were notable for leukocytosis to 14.1, hypokalemia to 3.3, and CT scan showed right orbital cellulitis without abscess and right maxillary and ethmoid sinusitis. He was started on IV zosyn and vancomycin. On 12/09/2024, they reported improvement in eye pain and pressure. Exam by ophthalmology noted no vision changes, color changes, or concerns for worsening infection. Labs notable for potassium 3.8 and leukocytosis to 14. He received one dose of IV steroids. On exam je endorse zero eye pain or pressure. Eyelid remains swollen but he was able to open the eye. No redness or drainage noted. Labs notable for leukocytosis down to 13.7, potassium 4.4, sodium 146. No cultures have been obtained. I discussed the plan with Ophthalmology who had recommended discharge patient on oral steroids of 80mg daily tapered to 40 mg daily for a today of 7 days.He was transition to oral antibiotics including Bactrim and Augmentin. No cultures were available to tailor therapy. Patient was discharged home with close outpatient follow-up with Ophthalmology. He was counseled extensively on management of orbital cellulitis on signs and symptoms to warrant return to hospital. Physical Exam Const: COMMON NORMALS: no acute distress and patient oriented x3 Eye: OTHER: Right eye, swelling upper and lower eyelid improved erythema has improved, pupil equal round reactive to light, extraocular movements intact, no blurry vision, no visual deficits, no photopsia no floaters, no blurry vision Resp: COMMON NORMALS: normal respiratory effort, No retractions, No use of accessory muscles and clear to auscultation bilaterally AUSCULTATION: clear to auscultation bilaterally Cardio: COMMON NORMALS: regular rate, regular rhythm, S1 normal heart sound present and S2 normal heart sound present RATE: regular rate RHYTHM: regular rhythm HEART SOUNDS: S1 normal heart sound present and S2 normal heart sound present GI: COMMON NORMALS: Normal to inspection, nondistended, normoactive bowel sounds present and non-tender Extremity: COMMON NORMALS: no pedal edema Neuro: COMMON NORMALS: patient oriented x3 Psych: COMMON NORMALS: mental status grossly normal Discharge Data Studies Completed and Pending Completed Studies During Hospitalization Category Date Time Status CT orbit BI w con [id number] Stat Cat Scan 12/08/24 15:57 Completed Radiology Impressions Orbit CT 12/08/24 15:57 IMPRESSION: 1. Right orbital cellulitis with no abscess formation. 2. Acute sinusitis of the right maxillary sinus and right ethmoid air cells. Laboratory Results WBC 10.04 10^3/uL (3.29-11.43) 12/11/24 05:45 RBC 4.58 10^6/uL (3.85-5.65) 12/11/24 05:45 Hgb 13.70 g/dL (11.27-16.99) 12/11/24 05:45 Hct 42.5 % (37-53) 12/11/24 05:45 MCV 92.8 fl (82-101) 12/11/24 05:45 MCH 29.9 pg (27-33) 12/11/24 05:45 MCHC 32.2 g/dL (30-55) 12/11/24 05:45 RDW 12.5 % (12.1-15.1) 12/11/24 05:45 Plt Count 506 10^3/cmm (157-399) H 12/11/24 05:45 MPV 9.6 fL (7.4-10.4) 12/11/24 05:45 Neut % (Auto) 52.3 % 12/11/24 05:45 Lymph % (Auto) 38.0 % 12/11/24 05:45 [place] % (Auto) 8.7 % 12/11/24 05:45 Eos % (Auto) 0.4 % 12/11/24 05:45 Baso % (Auto) 0.3 % 12/11/24 05:45 Neut # (Auto) 5.25 10^3/uL (1.8-7.7) 12/11/24 05:45 Lymph # (Auto) 3.8 10^3/uL (0.8-4.8) 12/11/24 05:45 [place] # (Auto) 0.9 10^3/uL (0.2-0.9) 12/11/24 05:45 Eos # (Auto) 0.0 10^3/uL (0.0-0.8) 12/11/24 05:45 Baso # (Auto) 0.0 10^3/uL (0.0-0.1) 12/11/24 05:45 Nucleated RBC % (auto) 0 % 12/11/24 05:45 Nucleated RBCs # 0.0 /100WBC 12/11/24 05:45 ESR 14 mm/hr (0-10) H 12/08/24 16:05 Sodium 147 mmol/L (136-145) H 12/11/24 05:45 Potassium 4.6 mmol/L (3.5-5.1) 12/11/24 05:45 Chloride 106 mmol/L (98-107) 12/11/24 05:45 Carbon Dioxide 29 mmol/L (22-29) 12/11/24 05:45 Anion Gap 16.6 (5-19) 12/11/24 05:45 BUN 18 mg/dL (6-20) 12/11/24 05:45 Creatinine 0.7 mg/dL (0.7-1.2) 12/11/24 05:45 GFR Calculation 142.4 mL/min (90-130) H 12/11/24 05:45 Glucose 91 mg/dL (65-115) 12/11/24 05:45 Estimat Average Glucose 114 12/08/24 16:05 Hemoglobin A1c 5.6 % (4.0-6.0) 12/08/24 16:05 Calculated Osmolality 305 mOsm/kg (285-295) H 12/11/24 05:45 Lactic Acid 1.7 mmol/L (0.5-2.2) 12/08/24 16:05 Calcium 9.7 mg/dL (8.5-10.5) 12/11/24 05:45 Phosphorus 3.9 mg/dL (2.5-4.5) 12/11/24 05:45 Magnesium 2.2 mg/dL (1.7-2.3) 12/11/24 05:45 Total Bilirubin 0.5 mg/dL (0.15-1.2) 12/11/24 05:45 AST 33 U/L (0-40) 12/11/24 05:45 ALT 44 U/L (0-41) H 12/11/24 05:45 Alkaline Phosphatase 66 U/L (40-130) 12/11/24 05:45 C-Reactive Protein 41.6 mg/L (0.0-4.9) H 12/08/24 16:05 Total Protein 7.4 g/dL (6.6-8.7) 12/11/24 05:45 Albumin 4.0 g/dL (3.5-5.2) 12/11/24 05:45 Globulin 3.4 g/dL (1.3-4.6) 12/11/24 05:45 Triglycerides 85 mg/dL (0-150) 12/08/24 16:05 Cholesterol 104 mg/dL (0-200) 12/08/24 16:05 LDL Cholesterol, Calc 51 mg/dL (50-129) 12/08/24 16:05 HDL Cholesterol 36 mg/dL (60-100) L 12/08/24 16:05 LDL/HDL Ratio 1.42 RATIO (0.00-3.22) 12/08/24 16:05 Cholesterol/HDL Ratio 2.89 mg/dL (1.0-5.00) 12/08/24 16:05 Procalcitonin 0.02 ng/mL (0-0.5) 12/08/24 16:05 TSH 0.27 uIU/mL (0.27-4.20) 12/08/24 16:05 Vancomycin Trough 14.6 ug/mL (10-15) 12/10/24 05:20 Vitals Last Vital Signs Temp 97.4 F L 12/11/24 09:45 Pulse 73 02/11/25 09:45 Resp 16 12/11/24 09:45 BP 135/80 12/11/24 09:45 Pulse Ox 94 12/11/24 09:45 O2 Del Method Room Air 12/11/24 08:00 Discharge Plan Discharge Patient Disposition: Home Condition: Stable Prescriptions: New amoxicillin-pot clavulanate 875-125 mg Tablet 1 tab PO BID 13 Days Qty: 26 0RF sulfamethoxazole-trimethoprim [Bactrim DS] 800-160 mg tablet 1 tab PO BID 13 Days Qty: 26 0RF Discharge Orders: Discharge Order (Routine); Ordered 12/11/24 Ordered By: Apryl Malik Referrals: Urbano Sykes MD [Primary Care Provider] - (We have notified your physician's clinic of the need for a follow-up appointment to be scheduled. If you have not heard from them within the next 2 business days, please call them directly. ) Derek Renner MD [Physician] - 12/19/24 9:30 am Discharge Diet: Usual diet Discharge Activity: Increase activity as tolerated Patient Instructions: Sulfamethoxazole/Trimethoprim (By mouth), Prednisone (By mouth), Amoxicillin/Clavulanate Potassium (By mouth), Orbital Cellulitis (GEN), Opioid Safety Discharge Attestations Time Spent in Discharge Care*: greater than 30 min Quality Metrics Clinical Quality Measures [ No reported AMI, CVA or VTE this stay] Coding Level of Care Code Acute Code for Chg Fwd Diagnoses Cellulitis of right orbit H05.011
== END 2024-12-11 09:46 | disposition home or self-care (01) | DRG 122 ==
LOC: ER 17:55 → ER IP 17:58 → MEDSURG 12-09 05:09
PROVIDERS: Admitting Provider Family Medicine; Emergency Provider Family Medicine; PCP Family Medicine Adult Medicine; Visit Provider Hospitalist
DX: H05.011 Cellulitis of right orbit (principal); E66.9 Obesity, unspecified; Z68.25 Body mass index [BMI] 25.0-25.9, adult; I10 Essential (primary) hypertension; E87.6 Hypokalemia; F90.9 Attention-deficit hyperactivity disorder, unspecified type; J32.8 Other chronic sinusitis
CPT/HCPCS: 12345; 36415; 70481; 80053; 80061; 80202; 83036; 83605; 83735; 84100; 84145; 84443; 85025; 85651; 86140; 94664; 96365; 96367; 96372; 96375; 99285; J1171; J1650; J2270; J2405; J2470; J2543; J2919; J3370; J7512